=== PATIENT | male | born 1945 | race Hispanic/Latino ===

== ENCOUNTER 2016-09-05 10:24 | Observation (INO) | payer MEDICARE ==
--- NOTE | 2016-09-05 10:45 | ED PDOC ---
Arrival/HPI - General Chief Complaint: Dizziness/Lightheaded Time Seen by Provider: 09/05/16 10:30 Historian: Patient - History of Present Illness Narrative History of Present Illness (Text): 09/05/16 10:42 70 year old male with a past medical history that includes atrial fibrillation, on Warfarin, sent to the emergency department by Dr. Arteaga after complaining of dizziness while getting routine blood work done. Patient's blood pressure was 90 systolic in the office. Patient reports he felt chills last night while watching television. Denies fever, chest pain, shortness of breath, headache, cough, urinary symptoms or stool changes. Time/Duration: 24 hours Symptom Onset: Gradual Symptom Course: Unchanged Modifying Factors (Text): None Associated Symptoms (Text): None Past Medical History - Provider Review Nursing Documentation Reviewed: Yes - Infectious Disease Hx of Infectious Diseases: None - Cardiac Hx Hypertension: Yes Hx Internal Defibrillator: Yes - Musculoskeletal/Rheumatological Hx Falls: No - Psychiatric Hx Substance Use: No - Past Surgical History Past Surgical History: No Previous - Surgical History Hx Inguinal Hernia Repair: Yes - Anesthesia Hx Anesthesia: No Hx Anesthesia Reactions: No Hx Malignant Hyperthermia: No - Suicidal Assessment Feels Threatened In Home Enviroment: No Family/Social History - Physician Review Nursing Documentation Reviewed: Yes Family/Social History: Unknown Family HX Smoking Status: Never Smoked Hx Alcohol Use: No Hx Substance Use: No Hx Substance Use Treatment: No Allergies/Home Meds Allergies/Adverse Reactions: Allergies No Known Allergies Allergy (Verified 09/05/16 10:36) Home Medications: Home Meds Medication Instructions Recorded Confirmed Warfarin [Coumadin] 5 mg PO DAILY 07/07/14 09/05/16 Losartan [Cozaar] 50 mg PO DAILY 07/08/14 09/05/16 Methimazole 10 mg PO DAILY 09/05/16 09/05/16 Metoprolol Tartrate [Lopressor] 25 mg PO BID 09/05/16 09/05/16 Review of Systems - Physician Review All systems were reviewed & negative as marked: Yes - Review of Systems Constitutional: Other (Chills). absent: Fevers Respiratory: absent: SOB, Cough Cardiovascular: absent: Chest Pain Gastrointestinal: absent: Stool Changes Genitourinary Male: absent: Dysuria, Frequency, Hematuria Neurological: Dizziness Physical Exam Vital Signs Reviewed: Yes Vital Signs Temp Pulse Resp BP Pulse Ox 09/05/16 14:17 98.5 F 71 17 112/62 97 09/05/16 10:37 97.6 F 86 18 99/79 L 97 Temperature: Afebrile Blood Pressure: Hypotensive Pulse: Regular Respiratory Rate: Normal Appearance: Positive for: Non-Toxic, Comfortable Pain Distress: None Mental Status: Positive for: Alert and Oriented X 3 Finger Stick Blood Glucose: 147 - Systems Exam Head: Present: Atraumatic, Normocephalic Pupils: Present: PERRL Extroacular Muscles: Present: EOMI Conjunctiva: Present: Normal Mouth: Present: Moist Mucous Membranes Neck: Present: Normal Range of Motion Respiratory/Chest: Present: Clear to Auscultation, Good Air Exchange. No: Respiratory Distress, Accessory Muscle Use Cardiovascular: Present: Regular Rate and Rhythm, Normal S1, S2. No: Murmurs Abdomen: Present: Normal Bowel Sounds. No: Tenderness, Distention, Peritoneal Signs Back: Present: Normal Inspection Upper Extremity: Present: Normal Inspection. No: Cyanosis, Edema Lower Extremity: Present: Normal Inspection. No: Edema Neurological: Present: GCS=15, CN II-XII Intact, Speech Normal Skin: Present: Warm, Dry, Pale. No: Rashes Psychiatric: Present: Alert, Oriented x 3, Normal Insight, Normal Concentration Medical Decision Making ED Course and Treatment: Impression: 70 year old male sent to the emergency department by Dr. Arteaga after complaining of dizziness while getting routine blood work done. Differential Diagnosis include but are not limited to: Plan: -- CT Head, EKG, Chest X-ray -- Labs -- Reassess and disposition Prior Visits: Notes and results from previous visits were reviewed. Patient last seen in ED on 07/08/14 for cough and admitted for pneumonia. Progress Notes: 09/05/16 11:27 EKG shows atrial fibrillation at 63 BPM, interpreted by me. 09/05/16 13:41 Urine was treated. Patient accepted by Dr. Arteaga to observation. - Lab Interpretations Lab Results: 09/05/16 11:20 09/05/16 11:20 Lab Results 09/05/16 13:00: Urine Color Dark yellow, Urine Appearance Cloudy, Urine pH 6.5, Ur Specific Basco 1.025, Urine Protein 30 H, Urine Glucose (UA) Negative, Urine Ketones 15 H, Urine Blood Small H, Urine Nitrate Positive H, Urine Bilirubin Negative, Urine Urobilinogen 1.0 H, Ur Leukocyte Esterase Trace H, Urine RBC 1 - 3, Urine WBC Tntc, Ur Epithelial Cells 0 - 2, Urine Bacteria Many 09/05/16 12:10: Influenza Typ A,B (EIA) Negative for flu a/b 09/05/16 11:20: WBC 16.6 H, RBC 5.14, Hgb 14.4, Hct 42.6, MCV 82.9, MCH 28.0, MCHC 33.8, RDW 13.3, Plt Count 177, MPV 9.0, Gran % 82.2 H, Lymph % (Auto) 9.6 L , [place] % (Auto) 8.0 H, Eos % (Auto) 0.0 L, Baso % (Auto) 0.2, Gran # 13.64 H, Lymph # 1.6, [place] # 1.3 H, Eos # 0.0, Baso # 0.03, PT 29.7 H, INR 2.75 H, APTT 42.1 H, Sodium 135, Potassium 4.8, Chloride 99, Carbon Dioxide 29, Anion Gap 12 , BUN 12, Creatinine 1.0, Est GFR ( Amer) > 60, Est GFR (Non-Af Amer) > 60, Random Glucose 126 H, Calcium 9.3, Magnesium 1.8, Total Bilirubin 1.3, AST 31, ALT 14, Alkaline Phosphatase 64, Lactate Dehydrogenase 385, Total Creatine Kinase 82, Troponin I < 0.01, Total Protein 7.4, Albumin 4.3, Globulin 3.1, Albumin/Globulin Ratio 1.4 - RAD Interpretation Narrative RAD Interpretations (Text): PROCEDURE: CT HEAD WITHOUT CONTRAST [employer] : Cassy Mccord MD HISTORY: Weakness on warfarin COMPARISON: None available. TECHNIQUE: Axial computed tomography images were obtained through the head/brain without intravenous contrast. Radiation dose: Total exam DLP = 79.68 mGy-cm. FINDINGS: HEMORRHAGE: No intracranial hemorrhage. BRAIN: There are mild chronic microangiopathic changes. Allison-white matter differentiation is preserved. There is no mass, mass effect or abnormal extra- axial fluid collection. There is normal density in the larger dural venous sinuses. VENTRICLES: There is mild age-related global parenchymal volume loss and proportionate enlargement of the ventricles and cortical sulci. CALVARIUM: The skull base and calvarium are normal. PARANASAL SINUSES: Predominantly clear. MASTOID AIR CELLS: Predominantly clear. OTHER FINDINGS: None. IMPRESSION: No acute intracranial abnormality. Mild chronic microangiopathic changes and mild age-related global parenchymal volume loss. Radiology Orders: 09/05/16 10:40 CHEST PORTABLE [RAD] Stat 09/05/16 10:41 HEAD W/O CONTRAST [CT] Stat Hand Hide Stretcher: Radiologist - EKG Interpretation Interpreted by ED Physician: Yes Type: 12 lead EKG Comparison: Similar to previous EKG - Medication Orders Current Medication Orders: Discontinued Medications Sodium Chloride (Sodium Chloride 0.9%) 500 mls @ 999 mls/hr IV .Q31M STA Stop: 09/05/16 12:06 Last Admin: 09/05/16 11:46 Dose: 999 MLS/HR eMAR Start Stop Document 09/05/16 11:46 OCS (Rec: 09/05/16 11:46 OCS [id number]) Intravenous Solution Start Date 09/05/16 Start Time 11:46 Ceftriaxone Sodium (Rocephin 1 Gram Ivpb) 100 mls @ 200 mls/hr IVPB STAT STA PRN Reason: Protocol Stop: 09/05/16 14:07 Last Admin: 09/05/16 14:05 Dose: 200 MLS/HR eMAR Start Stop Document 09/05/16 14:05 OCS (Rec: 09/05/16 14:05 OCS [id number]) Intravenous Solution Start Date 09/05/16 Start Time 14:05 - Scribe Statement The provider has reviewed the documentation as recorded by the Aminata Barney Provider Scribe Attestation: All medical record entries made by the Aminata were at my direction and personally dictated by me. I have reviewed the chart and agree that the record accurately reflects my personal performance of the history, physical exam, medical decision making, and the department course for this patient. I have also personally directed, reviewed, and agree with the discharge instructions and disposition. Disposition/Present on Arrival - Present on Arrival Any Indicators Present on Arrival: No History of DVT/PE: No History of Uncontrolled Diabetes: No Urinary Catheter: No History of Decub. Ulcer: No History Surgical Site Infection Following: None - Disposition Have Diagnosis and Disposition been Completed?: Yes Diagnosis: Urinary tract infection, Pre-syncope Disposition: HOSPITALIZED Disposition Time: 15:37 Patient Problems: Current Active Problems Problem Status Diagnosed Atrial fibrillation Acute Pneumonia Acute Condition: FAIR
[2016-09-05 11:29] LABS: ADD MANUAL DIFF? NO
[2016-09-05 11:35] LABS: BASO # 0.03 K/mm3 (0.0-2.0); BASO % 0.2 % (0.0-3.0); GRAN # 13.64 (1.4-6.5); GRAN % 82.2 % (50.0-68.0); HEMATOCRIT 42.6 % (42.0-52.0); LYMPH # 1.6 (1.2-3.4); LYMPH % 9.6 % (22.0-35.0); MEAN CELL VOLUME 82.9 fL (80.0-105.0); MEAN CORPUSCULAR HGB CONC 33.8 g/dl (31.0-37.0); MONO # 1.3 (0.1-0.6); PLATELET COUNT 177 10^3/uL (120.0-450.0); RED CELL DISTRIBUTION WIDTH 13.3 % (11.5-14.5); WHITE BLOOD COUNT 16.6 10^3/ul (4.5-11.0)
[2016-09-05] MEDS ORDERED: Sodium Chloride 0.9% 500 ML IV STA (11:36)
[2016-09-05 11:45] LABS: INR 2.75 (0.93-1.08); PARTIAL THROMBOPLASTIN TIME 42.1 Seconds (23.7-30.8)
[2016-09-05 11:46] LABS: ALB/GLOB RATIO 1.4 (1.1-1.8); ALKALINE PHOSPHATASE 64 U/L (38-133); ALT/SGPT 14 U/L (7-56); AST/SGOT 31 U/L (15-59); BILIRUBIN,TOTAL 1.3 mg/dL (0.2-1.3); BLOOD UREA NITROGEN 12 mg/dL (7-21); CALCIUM 9.3 mg/dL (8.4-10.5); CARBON DIOXIDE 29 mmol/L (21-33); CHLORIDE 99 mmol/L (98-107); GFR AFRICAN-AMERICAN > 60; GLUCOSE,RANDOM 126 mg/dL (70-110); MAGNESIUM 1.8 mg/dL (1.7-2.2); POTASSIUM 4.8 mmol/L (3.6-5.0); SODIUM 135 mmol/L (132-148); TOTAL PROTEIN 7.4 g/dL (5.8-8.3)
[2016-09-05 11:59] LABS: TROPONIN I < 0.01 ng/mL
--- NOTE | 2016-09-05 12:16 | CT ---
PROCEDURE: CT HEAD WITHOUT CONTRAST. HISTORY: Weakness on warfarin COMPARISON: None available. TECHNIQUE: Axial computed tomography images were obtained through the head/brain without intravenous contrast. Radiation dose: Total exam DLP = 79.68 mGy-cm. FINDINGS: HEMORRHAGE: No intracranial hemorrhage. BRAIN: There are mild chronic microangiopathic changes. Allison-white matter differentiation is preserved. There is no mass, mass effect or abnormal extra-axial fluid collection. There is normal density in the larger dural venous sinuses. VENTRICLES: There is mild age-related global parenchymal volume loss and proportionate enlargement of the ventricles and cortical sulci. CALVARIUM: The skull base and calvarium are normal. PARANASAL SINUSES: Predominantly clear. MASTOID AIR CELLS: Predominantly clear. OTHER FINDINGS: None. IMPRESSION: No acute intracranial abnormality. Mild chronic microangiopathic changes and mild age-related global parenchymal volume loss.
--- NOTE | 2016-09-05 12:58 | RAD ---
HISTORY: weakness COMPARISON: 07/10/2014 FINDINGS: LUNGS: The lungs are clear. PLEURA: No significant pleural effusion identified, no pneumothorax apparent. CARDIOVASCULAR: The cardiomediastinal silhouette is stable. OSSEOUS STRUCTURES: No significant abnormalities. VISUALIZED UPPER ABDOMEN: Normal. OTHER FINDINGS: None. IMPRESSION: No active pulmonary disease.
[2016-09-05 13:35] LABS: PH,URINE 6.5 (4.7-8.0); URINE BILIRUBIN NEGATIVE (NEGATIVE); URINE BLOOD SMALL (NEGATIVE); URINE GLUCOSE (UA) NEGATIVE (NEGATIVE); URINE KETONE 15 mg/dL (NEGATIVE); URINE LEUKOCYTE ESTERASE TRACE Leu/uL (NEGATIVE); URINE PROTEIN 30 mg/dL (<30 mg/dL)
[2016-09-05 13:36] LABS: URINE APPEARANCE CLOUDY (CLEAR); URINE COLOR DARK YELLOW (YELLOW)
[2016-09-05] MEDS ORDERED: cefTRIAXone 1 gm 100 ML IVPB STA (13:38)
[2016-09-05 13:42] LABS: URINE BACTERIA MANY (NEG); URINE EPITHELIAL CELLS 0 - 2 /hpf (0-5); URINE WBC TNTC /hpf (0-6)
[2016-09-05 20:38] VITALS: BMI 26.5
[2016-09-05] MEDS ORDERED: Pneumococcal 23-Valent Vaccine IM ONE (20:38)
[2016-09-05] MEDS ORDERED: Influenza Vaccine 45 MCG/0.5 ml IM ONE (20:38)
[2016-09-06 06:25] VITALS: BP 114/55; PULSE 76; RESP 18; TEMP 98.2; O2SAT 98
[2016-09-06] MEDS ORDERED: Barium Sulfate Susp 2.1% w/v, 2.0% w/w 450 mL Bottle PO ONE (07:07)
[2016-09-06 07:17] LABS: HEMATOCRIT 40.3 % (42.0-52.0); MEAN CELL VOLUME 82.6 fL (80.0-105.0); MEAN CORPUSCULAR HEMOGLOBIN 27.9 pg (25.0-35.0); MEAN CORPUSCULAR HGB CONC 33.7 g/dl (31.0-37.0); MEAN PLATELET VOLUME 9.3 fl (7.0-11.0); RED CELL DISTRIBUTION WIDTH 13.3 % (11.5-14.5); WHITE BLOOD COUNT 13.4 10^3/ul (4.5-11.0)
[2016-09-06 07:23] LABS: ALB/GLOB RATIO 1.2 (1.1-1.8); ALKALINE PHOSPHATASE 66 U/L (38-133); ALT/SGPT 16 U/L (7-56); AST/SGOT 27 U/L (15-59); BILIRUBIN,TOTAL 1.2 mg/dL (0.2-1.3); BLOOD UREA NITROGEN 12 mg/dL (7-21); CARBON DIOXIDE 27 mmol/L (21-33); CHLORIDE 103 mmol/L (98-107); GFR AFRICAN-AMERICAN > 60; GLUCOSE,RANDOM 99 mg/dL (70-110); SODIUM 138 mmol/L (132-148); TOTAL PROTEIN 6.7 g/dL (5.8-8.3)
[2016-09-06 07:27] LABS: INR 2.6 (0.93-1.08)
[2016-09-06] MEDS ORDERED: Iohexol 350 MG/100 ML VIAL ONE (08:51)
--- NOTE | 2016-09-06 09:32 | CARD ---
APPROVED REPORT EKG Measurement Heart [id number] <Conclusion> Atrial fibrillation Improved repolarization c/w ECG 07/07/14.
--- NOTE | 2016-09-06 09:58 | CON ---
DATE: 09/06/2016 The patient is seen earlier today in room 261, bed 1. CHIEF COMPLAINT: Urinary symptoms times several days. HISTORY OF PRESENT ILLNESS: This is a 70-year-old male with past medical history of hypertension, ca rdiac arrhythmia, and hyperthyroidism who is admitted through the Emergency Room last night, seen by ____, who states the patient also has atrial fibrillation on Coumadin. The patient had been havi ng dizziness and complaining of urinary symptoms. He had fevers and chills, and he states that he is much improved and wants to be discharged today. He does not want to stay in the hospital. REVIEW OF SYSTEMS: Reveals no abdominal pain, diarrhea, or constipation. No bright red blood per re ctum, no melena, no headaches or blurred vision. No rash or new joint pain. PAST MEDICAL HISTORY: Significant for atrial fibrillation, hypertension, cardiac arrhythmia, hyperth yroidism. PAST SURGICAL HISTORY: Significant for hernia surgery, he states, and a defibrillator. ALLERGIES: The patient has no known allergies. MEDICATIONS AT HOME: Include Coumadin 5 mg daily, losartan, which is Cozaar at 50 mg daily, methimaz ole at 10 mg daily, and metoprolol, which is Lopressor at 25 mg b.i.d. PHYSICAL EXAMINATION: GENERAL: The patient is in bed in no acute distress, nontoxic, insists on being discharged. VITAL SIGNS: Temperature of 98, heart rate of 86, respiratory rate of 18. Blood pressure is 99/79. HEENT: Unremarkable. NECK: Supple. LUNGS: Have decreased breath sounds. HEART: Normal S1, S2. ABDOMEN: Soft, nontender. No rebound, no guarding. LABORATORY DATA: The patient had a chest x-ray, which shows clear lungs. The patient also had a CAT scan of the head, which was no acute findings. White count reveals the patient to have a white count of 16,000, hemoglobin of 14, 82% granulocytosis . Coagulation is noted. Chemistries reveal the patient to have a BUN of 12, creatinine of 0.8, rand om glucose of 126. Urinalysis reveals [id number]-[id number]-count WBCs, many bacteria, leukocyte esterase. Influenza is negative. ASSESSMENT AND PLAN: This is a 70-year-old male with hypertension, atrial fibrillation, hyperthyroid ism, history of hernia, admitted with white count of 16,000, urinary tract symptoms. Urinary tract infection. Must rule out underlying prostate disease, currently on ceftriaxone, and a CAT scan of the abdomen and pelvis has been ordered by Dr. Sinha, and the blood cultures and urine cu ltures are pending. We will order a PSA, and should have a urology evaluation for prostate workup, a lthough the family history is negative for prostate cancer. We will follow with you. Case discussed with Dr. Lee. The patient insists on being discharged today. He insists on [facility]. Clarence Darnell MD cc: [id number] TT: 09/06/2016 09:57:54 Confirmation # [id number] Dictation # [id number]
[2016-09-06] MEDS ORDERED: cefTRIAXone 1 gm 100 ML IVPB SCH (10:00)
--- NOTE | 2016-09-08 23:26 | DS ---
DATE OF EVALUATION: 09/06/2016 DISCHARGE DIAGNOSES: 1. Syncope. 2. Urinary tract infection. 3. Atrial fibrillation. 4. Leukocytosis. 5. On anticoagulation with Coumadin. 6. Fever. HOSPITAL COURSE: The patient was admitted with syncope. He was found to have leukocytosis with elev ated white count of 16,000. UA was positive. Urine culture is pending. He was treated with IV cef triaxone. He was also given IV fluids. He recovered during hospitalization. CT of the head was ne sandieive. ID consultation, Dr. Darnell. PHYSICAL EXAMINATION: GENERAL: On discharge, comfortable, in bed, in no acute distress. VITAL SIGNS: Temperature 98.8, heart rate is 80 per minute, blood pressure 130/60, respiratory rate 16 per minute. HEENT: Normal. NECK: No lymphadenopathy. CARDIOVASCULAR: S1, S2 normal. No murmur, no gallop. ABDOMEN: Soft, nontender, no hepatosplenomegaly. CHEST: Air entry present, equal bilateral. No added sounds. EXTREMITIES: No edema. CENTRAL NERVOUS SYSTEM: Alert, oriented x 3. No sensory motor deficit. SKIN: No petechia, no rash. Labs, on discharge: INR 2.6. White count 13.4, hemoglobin 13.6, hematocrit 40.3, platelet count 177 . Creatinine 0.8. Urine culture pending. MEDICATIONS ON DISCHARGE: Augmentin 500/125 p.o. b.i.d., methimazole 10 mg daily, Lopressor 25 mg p. o. b.i.d., Coumadin 5 mg daily. DISPOSITION: Follow up with Dr. Arteaga. He will need evaluation for prostate. Follow up for leuk ocytosis and urine culture. Discussed with Dr. Arteaga. He will follow up in the office next week. DIET: Regular. ACTIVITIES: As tolerated. DISPOSITION: Home. CONDITION: Stable. MEDICATIONS: All prescriptions given to the patient. Discussed with the patient, discussed with the staff nurse. Discussed with Dr. Arteaga. Time spent on preparing discharge and coordinating care, 65 minutes. Jaelyn Lee MD cc: [id number] TT: 09/08/2016 23:25:56 ln
--- NOTE | 2016-09-08 23:48 | HP ---
HISTORY OF PRESENT ILLNESS: The patient is a 70-year-old male with history of atrial fibrillation on Coumadin, admitted to the hospital when he required routine blood work done. He was found to be hyp otensive. He reports chills in the night. He was watching television, denies any chest pain. No sh ortness of breath. He was found to have leukocytosis on the CBC done with an elevated white count of 16,000. He has atrial fibrillation, heart rate controlled with current medication. He also has hyp erthyroidism on methimazole. PAST MEDICAL HISTORY: Atrial fibrillation, hypertension, has internal defibrillator, hyperthyroidism . PAST SURGICAL HISTORY: Inguinal hernia repair. FAMILY HISTORY: No positive history, mother or father. PERSONAL HISTORY: Never smoked. No history of alcohol abuse. SOCIAL HISTORY: Lives at home with . ALLERGIES: No known drug allergies. HOME MEDICATIONS: Coumadin 5 mg daily, Cozaar 50 mg daily, methimazole 10 mg daily, metoprolol 25 mg p.o. b.i.d. REVIEW OF SYSTEMS: As per HPI. Rest of 12-point review of systems reviewed and negative. PHYSICAL EXAMINATION: GENERAL: Comfortable in bed, in no acute distress. VITAL SIGNS: Temperature 98.5, heart rate 70 per minute, respiratory rate 17 per minute, blood press ure 112/70, pulse ox is 97% on room air. HEENT: Normal. NECK: No lymphadenopathy. CARDIOVASCULAR: S1, S2 normal. No murmur, no gallop. ABDOMEN: Soft, nontender, no hepatosplenomegaly. EXTREMITIES: No edema. CENTRAL NERVOUS SYSTEM: Alert, oriented x 3. No sensory motor deficit. SKIN: No petechia, no rash. LYMPHADENOPATHY: None. SPINE: Nontender. EKG shows atrial fibrillation at 63 beats per minute. LABORATORY DATA: White count 16.6, hemoglobin 14.4, hematocrit 42.6, platelets 177. Sodium 135, pot assium 4.8, glucose 126, UA nitrite positive. Cardiac enzymes normal, bilirubin 1.3. CT head withou t contrast, no hemorrhage. ASSESSMENT: 1. Syncope. 2. Atrial fibrillation. 3. Urinary tract infection. 4. Leukocytosis. 5. On anticoagulation with Coumadin. 6. Hyperthyroidism. PLAN: He will be monitored on telemonitoring. UA positive, will give ceftriaxone 1 gram daily. Uri ne culture to be sent. We will continue methimazole 10 mg daily. We will continue beta sher, met oprolol 25 mg p.o. b.i.d. INR 2.7. We will continue same dose of Coumadin at 5 mg daily. ROSANNE quintana with Dr. Darnell requested. Cardiology consultation with Dr. Bowman. Neuro consultation, Dr. Tan. Discussed with the patient, discussed with the staff. Jaelyn Lee MD cc: [id number] TT: 09/08/2016 23:47:43 mn
== END 2016-09-06 09:28 | disposition home or self-care (01) ==
LOC: ED 10:24 → ERH 13:40 → 2RNO 16:27
PROVIDERS: ADMIT Internal Medicine Nephrology; ATTEND Internal Medicine Nephrology
DX: N39.0 Urinary tract infection, site not specified (principal); J18.9 Pneumonia, unspecified organism; I48.91 Unspecified atrial fibrillation; Z79.01 Long term (current) use of anticoagulants; E05.90 Thyrotoxicosis, unspecified without thyrotoxic crisis or storm; I10 Essential (primary) hypertension; Z79.899 Other long term (current) drug therapy; Z95.810 Presence of automatic (implantable) cardiac defibrillator; B96.20 Unspecified Escherichia coli [E. coli] as the cause of diseases classified elsewhere
CPT/HCPCS: 36415; 70450; 71010; 80053; 81001; 82550; 83615; 83735; 84153; 84484; 85025; 85027; 85610; 85730; 87040; 87086; 87181; 87804; 93005; 99285; G0378; J0696; J7040

== ENCOUNTER 2018-02-08 19:48 | Inpatient (IN) | payer MEDICARE ==
[2018-02-08 21:15] LABS: BASO # 0.03 K/mm3 (0.0-2.0); BASO % 0.4 % (0.0-3.0); EOS % 0.1 % (1.5-5.0); GRAN # 5.65 (1.4-6.5); GRAN % 67.9 % (50.0-68.0); HEMOGLOBIN 15.1 g/dL (14.0-18.0); LYMPH # 1.7 (1.2-3.4); MEAN CELL VOLUME 77.9 fl (80.0-105.0); MEAN CORPUSCULAR HEMOGLOBIN 26.9 pg (25.0-35.0); MEAN CORPUSCULAR HGB CONC 34.5 g/dl (31.0-37.0); MEAN PLATELET VOLUME 8.9 fl (7.0-11.0); MONO % 11.6 % (1.0-6.0); RBC 5.62 10^6/uL (3.5-6.1); RED CELL DISTRIBUTION WIDTH 13.2 % (11.5-14.5); WHITE BLOOD COUNT 8.3 10^3/ul (4.5-11.0)
[2018-02-08 21:25] LABS: ALB/GLOB RATIO 1.3 (1.1-1.8); ALBUMIN 4.2 g/dL (3.0-4.8); ALT/SGPT 22 U/L (7-56); AST/SGOT 38 U/L (17-59); BLOOD UREA NITROGEN 13 mg/dL (7-21); CALCIUM 9.5 mg/dL (8.4-10.5); GFR AFRICAN-AMERICAN > 60; GFR NON-AFRICAN AMERICAN > 60
[2018-02-08 21:31] LABS: URINE BILIRUBIN NEGATIVE (NEGATIVE); URINE BLOOD MODERATE (NEGATIVE); URINE GLUCOSE (UA) 250 mg/dL (NEGATIVE); URINE LEUKOCYTE ESTERASE NEGATIVE Leu/uL (NEGATIVE); URINE PROTEIN TRACE mg/dL (<30 mg/dL)
[2018-02-08 21:33] LABS: URINE APPEARANCE CLEAR (CLEAR); URINE COLOR YELLOW (YELLOW)
[2018-02-08 21:34] LABS: INR 2.66; PARTIAL THROMBOPLASTIN TIME 41.2 Seconds (25.1-36.5); PROTHROMBIN TIME 30.9 SECONDS (9.4-12.5)
--- NOTE | 2018-02-08 21:55 | ED PDOC ---
Arrival/HPI - General Chief Complaint: Fever Time Seen by Provider: 02/08/18 20:02 Historian: Patient - History of Present Illness Narrative History of Present Illness (Text): 02/08/18 20:10 A 72 year old male, whose past medical history includes , presents to the emergency department complaining of fever for the past few days. Patient reports associated chills and foul smelling urine. Patient states he has taken antibiotics prescribed from PMD and 2nd course of antibiotics startes today. Patient sates he was referred to emergency department by PMD. Patient denies any chest pain, shortness of breath, nausea, vomiting, diarrhea, urinary symptoms, back pain, neck pain, headache, dizziness, or any other complaints. Dr. Zhao Time/Duration: Other (a days) Symptom Onset: Gradual Activities at Onset: Light Context: Home Past Medical History - Provider Review Nursing Documentation Reviewed: Yes - Infectious Disease Hx of Infectious Diseases: None - Cardiac Hx Cardiac Disorders: Yes Hx Cardiac Arrhythmia: Yes (AFIB ON COUMADIN) Hx Hypertension: Yes Hx Internal Defibrillator: Yes - Pulmonary Hx Respiratory Disorders: Yes Hx Pneumonia: Yes (2014) - Neurological Hx Neurological Disorder: Yes Hx Dizziness: Yes (NEAR SYNCOPE 09-05-16) - HEENT Hx HEENT Disorder: Yes (TONSILLECTOMY) - Endocrine/Metabolic Hx Endocrine Disorders: No - Hematological/Oncological Hx Blood Disorders: No - Musculoskeletal/Rheumatological Hx Musculoskeletal Disorders: No - Gastrointestinal Hx Gastrointestinal Disorders: Yes (INGUINAL HERNIA REPAIR) - Genitourinary/Gynecological Hx Genitourinary Disorders: Yes Hx Urinary Tract Infection: Yes - Psychiatric Hx Substance Use: No - Past Surgical History Past Surgical History: No Previous - Surgical History Other/Comment: HERNIA REPAIR - Anesthesia Hx Anesthesia: No Hx Anesthesia Reactions: No Hx Malignant Hyperthermia: No - Suicidal Assessment Feels Threatened In Home Enviroment: No Family/Social History - Physician Review Nursing Documentation Reviewed: Yes Family/Social History: Unknown Family HX Smoking Status: Never Smoked Hx Alcohol Use: No Hx Substance Use: No Hx Substance Use Treatment: No Allergies/Home Meds Allergies/Adverse Reactions: Allergies No Known Allergies Allergy (Verified 02/08/18 20:07) Home Medications: Home Meds Medication Instructions Recorded Confirmed Warfarin [Coumadin] 5 mg PO HS 07/07/14 02/08/18 Metoprolol Tartrate [Lopressor] 25 mg PO BID 09/05/16 02/08/18 Review of Systems - Physician Review All systems were reviewed & negative as marked: Yes - Review of Systems Constitutional: Fevers, Night Sweats Respiratory: absent: SOB Cardiovascular: absent: Chest Pain Gastrointestinal: absent: Diarrhea, Nausea, Vomiting Musculoskeletal: absent: Back Pain, Neck Pain Neurological: absent: Headache, Dizziness Physical Exam Vital Signs Reviewed: Yes Vital Signs Temp Pulse Resp BP Pulse Ox 02/08/18 20:08 100.1 F H 102 H 18 117/71 97 Temperature: Febrile Blood Pressure: Normal Pulse: Tachycardic Respiratory Rate: Normal Appearance: Positive for: Well-Appearing, Non-Toxic, Comfortable Pain Distress: None Mental Status: Positive for: Alert and Oriented X 3 - Systems Exam Head: Present: Atraumatic, Normocephalic Pupils: Present: PERRL Extroacular Muscles: Present: EOMI Conjunctiva: Present: Normal Mouth: Present: Moist Mucous Membranes Neck: Present: Normal Range of Motion Respiratory/Chest: Present: Clear to Auscultation, Good Air Exchange. No: Respiratory Distress, Accessory Muscle Use Cardiovascular: Present: Irregular Rhythm (irregular regular rhythm ). No: Regular Rate and Rhythm, Murmurs, Normal S1, S2, Peripheal Pulses Present, Bradycardic, Rub, Gallop, Muffled Abdomen: No: Tenderness, Distention, Peritoneal Signs Back: Present: Normal Inspection Upper Extremity: Present: Normal Inspection. No: Cyanosis, Edema Lower Extremity: Present: Normal Inspection. No: Edema Neurological: Present: GCS=15, CN II-XII Intact, Speech Normal Skin: Present: Warm, Dry, Normal Color. No: Rashes Psychiatric: Present: Alert, Oriented x 3, Normal Insight, Normal Concentration Medical Decision Making ED Course and Treatment: 02/08/18 20:30 Impression: 72 year old male presenting to the Emergency Department with fever. Plan: -- Blood culture -- Urine Culture -- Urinalysis with micro -- Reassess and disposition Prior Visits: Notes and results from previous visits were reviewed. Progress Notes: - Lab Interpretations Lab Results: 02/08/18 20:35 02/08/18 20:35 Lab Results 02/08/18 21:28: Urine Color Yellow, Urine Appearance Clear, Urine pH 6.0, Ur Specific [place] 1.020, Urine Protein Trace H, Urine Glucose (UA) 250 H, Urine Ketones 15 H, Urine Blood Moderate H, Urine Nitrate Negative, Urine Bilirubin Negative, Urine Urobilinogen 1.0 H, Ur Leukocyte Esterase Negative, Urine RBC 5 - 10, Urine WBC 5 - 10, Ur Epithelial Cells 1 - 3, Urine Bacteria Small, Urine Other Mucus 02/08/18 20:35: PT 30.9 H, INR 2.66, APTT 41.2 H 02/08/18 20:35: Sodium 137, Potassium 4.1, Chloride 101, Carbon Dioxide 24, Anion Gap 17, BUN 13, Creatinine 0.9, Est GFR ( Amer) > 60, Est GFR (Non- Af Amer) > 60, Random Glucose 118 H, Calcium 9.5, Total Bilirubin 0.8, AST 38, ALT 22, Alkaline Phosphatase 94, Total Protein 7.3, Albumin 4.2, Globulin 3.2, Albumin/Globulin Ratio 1.3 02/08/18 20:35: WBC 8.3 D, RBC 5.62, Hgb 15.1, Hct 43.8, MCV 77.9 L, MCH 26.9, MCHC 34.5, RDW 13.2, Plt Count 219, MPV 8.9, Gran % 67.9, Lymph % (Auto) 20.0 L , [place] % (Auto) 11.6 H, Eos % (Auto) 0.1 L, Baso % (Auto) 0.4, Gran # 5.65, Lymph # (Auto) 1.7, [place] # (Auto) 1.0 H, Eos # (Auto) 0.0, Baso # (Auto) 0.03 - Medication Orders Current Medication Orders: Ceftriaxone Sodium (Rocephin 1 Gram Ivpb) 1 gm in 100 mls @ 100 mls/hr IVPB STAT STA PRN Reason: Protocol Stop: 02/08/18 23:07 Last Admin: 02/08/18 22:30 Dose: 100 mls/hr eMAR Start Stop Document 02/08/18 22:30 JOL (Rec: 02/08/18 22:31 JOL [id number]) Intravenous Solution Start Date 02/08/18 Start Time 22:31 End Date 02/08/18 End time 23:31 Total Infusion Time 60 Metoprolol Tartrate (Lopressor) 25 mg PO BID [facility] Warfarin Sodium (Coumadin) 5 mg PO HS [facility] PRN Reason: Protocol - Scribe Statement The provider has reviewed the documentation as recorded by the Scribdena Mcelroy All medical record entries made by the Scribe were at my direction and personally dictated by me. I have reviewed the chart and agree that the record accurately reflects my personal performance of the history, physical exam, medical decision making, and the department course for this patient. I have also personally directed, reviewed, and agree with the discharge instructions and disposition. Disposition/Present on Arrival - Present on Arrival Any Indicators Present on Arrival: No History of DVT/PE: No History of Uncontrolled Diabetes: No Urinary Catheter: No History of Decub. Ulcer: No History Surgical Site Infection Following: None - Disposition Have Diagnosis and Disposition been Completed?: Yes Diagnosis: UTI (urinary tract infection) Disposition: HOSPITALIZED Disposition Time: 22:00 Condition: STABLE
[2018-02-08 21:56] LABS: URINE BACTERIA SMALL (NEG)
[2018-02-08] MEDS ORDERED: cefTRIAXone 1 gm 1 GM/100 ML BAG IVPB STA (22:08)
[2018-02-08 23:41] VITALS: BMI 26.9
[2018-02-09] MEDS: cefTRIAXone 1 gm 1 GM/100 ML BAG IV SCH (10:49)
--- NOTE | 2018-02-09 13:39 | CP.PCM.CON ---
<Janneth Whitehead - Last Filed: 02/09/18 14:17> History of Present Illness - History of Present Illness History of Present Illness: PGY-2 Infectious disease conult note for Dr. Sinha's service 72 year old male, whose past medical history includes a. fib, HTN, hyperthyriodism, presents to the emergency department complaining of fever for the past few days. Patient states that he noticed foul smelling urine 1 week ago and was gibe antibiotics from PMD. He states he returned to PMD and 2nd course of antibiotics was started. However he states that when he go home he developed fevers and chills and decided to come to the ED. Patient states that earlier this year he had a UTI and was treated with antibiotics. He denies any dsyuria, increased frequency. He also reports swelling of left testicle that he noticed yesterday. Patient denies any chest pain, shortness of breath, nausea, vomiting, diarrhea, back pain, neck pain, headache, dizziness, or any other complaints. PMH: a. fin, HTN, hyperthyriodism, internal defibrillator PSH: left inguinal hernia repair allergy: NKDA social history: denies smoking, alcohol use, illicit drug use, lives with and is retired Review of Systems - Review of Systems All systems: reviewed and no additional remarkable complaints except Past Patient History - Infectious Disease Hx of Infectious Diseases: None - Past Social History Smoking Status: Former Smoker - CARDIAC Hx Cardiac Disorders: Yes Hx Cardia Arrhythmia: Yes (AFIB ON COUMADIN) Hx Hypertension: Yes - PULMONARY Hx Respiratory Disorders: Yes Hx Pneumonia: Yes (2014) - NEUROLOGICAL Hx Neurological Disorder: Yes Hx Dizziness: Yes (NEAR SYNCOPE 09-05-16) - HEENT Hx HEENT Problems: Yes (TONSILLECTOMY) - ENDOCRINE/METABOLIC Hx Endocrine Disorders: No - HEMATOLOGICAL/ONCOLOGICAL Hx Blood Disorders: No - MUSCULOSKELETAL/RHEUMATOLOGICAL Hx Musculoskeletal Disorders: No Hx Falls: No - GASTROINTESTINAL Hx Gastrointestinal Disorders: Yes (INGUINAL HERNIA REPAIR) - GENITOURINARY/GYNECOLOGICAL Hx Genitourinary Disorders: Yes Hx Urinary Tract Infection: Yes - PSYCHIATRIC Hx Substance Use: No - SURGICAL HISTORY Hx Surgeries: Yes Other/Comment: HERNIA REPAIR - ANESTHESIA Hx Anesthesia: No Hx Anesthesia Reactions: No Hx Malignant Hyperthermia: No Meds Allergies/Adverse Reactions: Allergies Allergy/AdvReac Type Severity Reaction Status Date / Time No Known Allergies Allergy Verified 02/08/18 20:07 - Medications Medications: Current Medications Ceftriaxone Sodium (Rocephin 1 Gram Ivpb) 1 gm in 100 mls @ 200 mls/hr IV DAILY [facility] PRN Reason: Protocol Last Admin: 02/09/18 10:49 Dose: 200 mls/hr Metoprolol Tartrate (Lopressor) 25 mg PO BID [facility] Last Admin: 02/09/18 09:12 Dose: 25 mg Warfarin Sodium (Coumadin) 5 mg PO HS [facility] PRN Reason: Protocol Last Admin: 02/08/18 23:10 Dose: 5 mg Physical Exam - Constitutional Appears: Well, No Acute Distress - Head Exam Head Exam: ATRAUMATIC, NORMOCEPHALIC - Eye Exam Eye Exam: EOMI, Normal appearance - ENT Exam ENT Exam: Mucous Membranes Moist - Respiratory Exam Respiratory Exam: Clear to Auscultation Bilateral, NORMAL BREATHING PATTERN. absent: Decreased Breath Sounds, Rales, Rhonchi, Wheezes, Respiratory Distress - Cardiovascular Exam Cardiovascular Exam: Irregular Rhythm. absent: Bradycardia, Tachycardia, Diastolic murmur, Systolic Murmur - GI/Abdominal Exam GI & Abdominal Exam: Normal Bowel Sounds, Soft. absent: Distended, Firm, Guarding, Tenderness - Exam Exam: Testicular Tenderness (left ) - Extremities Exam Extremities exam: Positive for: normal inspection - Back Exam Back exam: absent: CVA tenderness (L), CVA tenderness (R) - Neurological Exam Neurological exam: Alert, Oriented x3 - Skin Skin Exam: Dry, Intact, Normal Color, Warm Results - Vital Signs Recent Vital Signs: Last Vital Signs Temp 97.7 F 02/09/18 08:04 Pulse 79 02/09/18 08:04 Resp 18 02/09/18 08:04 BP 144/87 02/09/18 08:04 Pulse Ox 96 02/09/18 08:04 - Labs Result Diagrams: 02/08/18 20:35 02/08/18 20:35 Labs: Laboratory Results - last 24 hr 02/09/18 10:30 Prostate Specific Ag 2.5 Assessment & Plan - Assessment and Plan (Free Text) Assessment: 72 year old male, whose past medical history includes a. fib, HTN, hyperthyriodism, presents with fever and chills. UA was negative for nitrates or leukocyte esterase, Will follow up urine cultures. Patient reports testicular tenderness Will follow up testicular US to r/o orchitis. Continue ceftriaxone. Monitor for fevers. case reviewed and discussed with attending <Milad Sinha - Last Filed: 02/09/18 15:39> Meds - Medications Medications: Current Medications Ceftriaxone Sodium (Rocephin 1 Gram Ivpb) 1 gm in 100 mls @ 200 mls/hr IV DAILY [facility] PRN Reason: Protocol Last Admin: 02/09/18 10:49 Dose: 200 mls/hr Metoprolol Tartrate (Lopressor) 25 mg PO BID [facility] Last Admin: 02/09/18 09:12 Dose: 25 mg Warfarin Sodium (Coumadin) 5 mg PO HS [facility] PRN Reason: Protocol Last Admin: 02/08/18 23:10 Dose: 5 mg Results - Vital Signs Recent Vital Signs: Last Vital Signs Temp 97.7 F 02/09/18 08:04 Pulse 79 02/09/18 08:04 Resp 18 02/09/18 08:04 BP 144/87 02/09/18 08:04 Pulse Ox 96 02/09/18 08:04 - Labs Result Diagrams: 02/08/18 20:35 02/08/18 20:35 Labs: Laboratory Results - last 24 hr 02/09/18 10:30 Prostate Specific Ag 2.5 Assessment & Plan - Assessment and Plan (Free Text) Assessment: Infectious Diseases Attending Physician Addendum Patient seen and examined, discussed with medical surgical tech. I have reviewed the pertinent clinical information for the patient, including history of present illness, medical, personal and social histories, lab results and imaging findings. I agree with the above findings, assessment and plan. In addition, we have started the patient on Rocephin for left sided epidydimitis. Follow up blood and urine cx. Follow up ultrasound of the testes.
--- NOTE | 2018-02-09 15:23 | US ---
Date of service: 02/09/2018 HISTORY: Left scrotal pain TECHNIQUE: Realtime sonography through the scrotum with color and doppler flow. COMPARISON: None Available. FINDINGS: RIGHT TESTICLE: Measures 4.9 x 1.6 x 2.3 cm. Normal echotexture and flow. RIGHT EPIDIDYMIS: Epididymal head measures 1.2 x 1.1 x 0.9 cm. Grossly unremarkable appearance with normal flow. The tail of the epididymis is enlarged heterogeneous with increased vascularity. LEFT TESTICLE: Measures 4.3 x 2.3 x 2.4 cm. Normal echotexture and flow. LEFT EPIDIDYMIS: Epididymal head measures 1.8 x 1.1 x 1.0 cm. There are 4 x 3 x 4 mm and 5 x 3 x 4 mm simple cyst in the head of the epididymis. There is a 5 x 2 x 4 mm septated cyst in the tail of the epididymis. The tail of the epididymis is enlarged heterogeneous with increased vascularity. HYDROCELE: Moderate hydroceles. VARICOCELE: None. OTHER FINDINGS: None. IMPRESSION: Findings are most compatible with bilateral focal epididymitis involving the tail, worse on the left. Bilateral hydroceles. No evidence for testicular mass or torsion.
[2018-02-10 07:47] VITALS: BP 130/87; PULSE 82; RESP 18; TEMP 98.1; O2SAT 98
--- NOTE | 2018-02-10 07:59 | HP ---
Copied To: Ever Arteaga MD Attending MD: Ever Arteaga MD CHIEF COMPLAINT AND HISTORY OF PRESENT ILLNESS: This is a 72-year-old male who is coming into the hospital with past medical history of , hypertension, and left inguinal hernia repair in the past. He has complaints of fever, chills. He was being treated with Augmentin for E. Coli that was sensitive. He started having left-sided scrotal pain. He came in to see me in the office yesterday. He had finished about two days of antibiotics. He was switched over to Levaquin as the Augmentin may have been causing side effects. He had taken one dose when at home. Complaining of chills. He was advised to come into the ER for further evaluation. He has no complaints of any fevers or chills. No urinary discharge. No erythema or redness. No abdominal pain, no back pain, no dysuria, no frequency. No weakness in the arms or the legs. REVIEW OF SYMPTOMS: All other review of symptoms are within normal limits except that was mentioned. PAST MEDICAL HISTORY: Atrial fibrillation, hypertension, , on defibrillator. PAST SURGICAL HISTORY: Left inguinal hernia repair. ALLERGIES: NO KNOWN DRUG ALLERGIES. SOCIAL HISTORY: He denies smoking, drinking, or alcohol. He is retired and lives with his . HOME MEDICATIONS: His home medications have been reviewed. PHYSICAL EXAMINATION: VITAL SIGNS: Temperature is 100.1, pulse of 102, blood pressure /71, respirations 18, O2 saturation 97%. GENERAL: The patient lying in bed, uncomfortable, and in no acute distress. HEENT: Atraumatic and normocephalic. Anicteric sclerae. Moist mucosa. [place] conjunctivae. No oral lesions. NECK: No JVD, anterior and posterior adenopathy, thyromegaly, or bruits. CARDIOVASCULAR: S1 and S2 regular. No murmur, rubs, or gallop. LUNGS: Clear to auscultation bilaterally. No wheezes, rales, or rhonchi. ABDOMEN: Bowel sounds are positive. Soft, nontender and nondistended. No hepatosplenomegaly. No rebound and no guarding EXTREMITIES: No cyanosis, clubbing, or edema. NEUROLOGIC: No facial asymmetry. Tongue is midline. No uvula deviation. Power is 5/5 upper extremity and lower extremity. Sensation intact in upper extremity and lower extremity. PSYCHIATRIC: He is awake, alert and oriented x3. No anxiety or depression. He has normal affect. GENITOURINARY: No CVA tenderness. VASCULAR: 2+ pulses in the carotid pulses and pedal pulses. SKIN: No erythema or nodules SPINE: Shows normal curvature. LABORATORY DATA: White count of 8.3, hemoglobin 15.1. Chemistry shows sodium of 137. Creatinine is 0.9. PSA is 2.5. He has blood as moderate, nitrites are negative, bilirubin is negative. INR is 2.6. ASSESSMENT: 1. Urinary tract infection secondary to Escherichia coli. 2. Atrial fibrillation, on anticoagulation. 3. . PLAN: The patient is currently comfortable. He is on IV antibiotics. He has blood cultures and urine cultures have been done. He is on Coumadin, continue at 5 mg. He is on metoprolol. He is going to continue with Rocephin for antibiotics. I will get a testicular ultrasound. He has some point of left-sided scrotal pain. The patient is going to be seen by Infectious Disease. He is going to be on a regular diet. vEer Arteaga MD
[2018-02-10] MEDS: cefTRIAXone 1 gm 1 GM/100 ML BAG IV SCH (09:24)
--- NOTE | 2018-02-10 11:07 | PN ---
Copied To: Jaylan Simmons MD Attending MD: Jaylan Simmons MD DATE: 02/10/2018 SUBJECTIVE: A 72-year-old white male with history of chronic atrial fibrillation, on warfarin and metoprolol. Patient was admitted with swelling of the testicle and elevated fever. He is on Rocephin. The testicle has reduced in size. We are awaiting an ultrasound and cultures. So far, the cultures are negative. Patient will be discharged home today if his cultures are negative and his ultrasound did not show any significant mass, most likely this is epididymitis with infection. Patient will be continued on his Coumadin. PHYSICAL EXAMINATION: CHEST: Clear to auscultation and percussion. HEART: Regular rate with controlled ventricular response. ABDOMEN: Soft. GENITOURINARY: Testicles are without swelling today without tenderness. EXTREMITIES: Without cyanosis, clubbing, or edema. NEUROLOGIC: Grossly intact. PLAN: As above. Possible discharge today on p.o. antibiotics. We will follow up with Dr. Arteaga as an outpatient. Jaylan Simmons MD cc: Ever Arteaga MD
--- NOTE | 2018-02-10 11:14 | CP.PCM.DIS ---
Provider - Provider Date of Admission: 02/09/18 14:45 Attending physician: Ever Arteaga MD Primary care physician: Ever Arteaga MD Time Spent in preparation of Discharge (in minutes): 30 Diagnosis - Discharge Diagnosis (1) Epididymal pain Status: Acute (2) Epididymitis Status: Acute (3) Scrotal edema Status: Acute (4) Atrial fibrillation Status: Acute (5) UTI (urinary tract infection) Status: Acute Hospital Course - Lab Results Lab Results: Most Recent Lab Values WBC 8.3 10^3/ul (4.5-11.0) D 02/08/18 20:35 RBC 5.62 10^6/uL (3.5-6.1) 02/08/18 20:35 Hgb 15.1 g/dL (14.0-18.0) 02/08/18 20:35 Hct 43.8 % (42.0-52.0) 02/08/18 20:35 MCV 77.9 fl (80.0-105.0) L 02/08/18 20:35 MCH 26.9 pg (25.0-35.0) 02/08/18 20:35 MCHC 34.5 g/dl (31.0-37.0) 02/08/18 20:35 RDW 13.2 % (11.5-14.5) 02/08/18 20:35 Plt Count 219 10^3/uL (120.0-450.0) 02/08/18 20:35 MPV 8.9 fl (7.0-11.0) 02/08/18 20:35 Gran % 67.9 % (50.0-68.0) 02/08/18 20:35 Lymph % (Auto) 20.0 % (22.0-35.0) L 02/08/18 20:35 [place] % (Auto) 11.6 % (1.0-6.0) H 02/08/18 20:35 Eos % (Auto) 0.1 % (1.5-5.0) L 02/08/18 20:35 Baso % (Auto) 0.4 % (0.0-3.0) 02/08/18 20:35 Gran # 5.65 (1.4-6.5) 02/08/18 20:35 Lymph # (Auto) 1.7 (1.2-3.4) 02/08/18 20:35 [place] # (Auto) 1.0 (0.1-0.6) H 02/08/18 20:35 Eos # (Auto) 0.0 (0.0-0.7) 02/08/18 20:35 Baso # (Auto) 0.03 K/mm3 (0.0-2.0) 02/08/18 20:35 PT 30.9 SECONDS (9.4-12.5) H 02/08/18 20:35 INR 2.66 02/08/18 20:35 APTT 41.2 Seconds (25.1-36.5) H 02/08/18 20:35 Sodium 137 mmol/L (132-148) 02/08/18 20:35 Potassium 4.1 mmol/L (3.6-5.0) 02/08/18 20:35 Chloride 101 mmol/L (98-107) 02/08/18 20:35 Carbon Dioxide 24 mmol/L (21-33) 02/08/18 20:35 Anion Gap 17 (10-20) 02/08/18 20:35 BUN 13 mg/dL (7-21) 02/08/18 20:35 Creatinine 0.9 mg/dl (0.8-1.5) 02/08/18 20:35 Est GFR ( Amer) > 60 02/08/18 20:35 Est GFR (Non-Af Amer) > 60 02/08/18 20:35 Random Glucose 118 mg/dL (70-110) H 02/08/18 20:35 Calcium 9.5 mg/dL (8.4-10.5) 02/08/18 20:35 Total Bilirubin 0.8 mg/dL (0.2-1.3) 02/08/18 20:35 AST 38 U/L (17-59) 02/08/18 20:35 ALT 22 U/L (7-56) 02/08/18 20:35 Alkaline Phosphatase 94 U/L (38-126) 02/08/18 20:35 Total Protein 7.3 g/dL (5.8-8.3) 02/08/18 20:35 Albumin 4.2 g/dL (3.0-4.8) 02/08/18 20:35 Globulin 3.2 gm/dL 02/08/18 20:35 Albumin/Globulin Ratio 1.3 (1.1-1.8) 02/08/18 20:35 Prostate Specific Ag 2.5 ng/mL (0.00-2.5) 02/09/18 10:30 Urine Color Yellow (YELLOW) 02/08/18 21: Urine Appearance Clear (CLEAR) 02/08/18 21: Urine pH 6.0 (4.7-8.0) 02/08/18 21: Ur Specific [place] 1.020 (1.005-1.035) 02/08/18 21: Urine Protein Trace mg/dL (<30 mg/dL) H 02/08/18 21: Urine Glucose (UA) 250 mg/dL (NEGATIVE) H 02/08/18 21: Urine Ketones 15 mg/dL (NEGATIVE) H 02/08/18 21: Urine Blood Moderate (NEGATIVE) H 02/08/18 21: Urine Nitrate Negative (NEGATIVE) 02/08/18 21: Urine Bilirubin Negative (NEGATIVE) 02/08/18 21: Urine Urobilinogen 1.0 E.U./dL (<1 E.U./dL) H 02/08/18 21:28 Ur Leukocyte Esterase Negative [place]/uL (NEGATIVE) 02/08/18 21:28 Urine RBC 5 - 10 /hpf (0-2) 02/08/18 21:28 Urine WBC 5 - 10 /hpf (0-6) 02/08/18 21:28 Ur Epithelial Cells 1 - 3 /hpf (0-5) 02/08/18 21:28 Urine Bacteria Small (NEG) 02/08/18 21: Urine Other Mucus 02/08/18 21:28 - Hospital Course Hospital Course: PGY-[address] Simmons Mr Wade, 72M, with Hx Afib on metoprolol/Warfarin, HTN, L inguinal repair in the past, c/o fever and chills. Prior to admission, he was treated with augmentin for E coli UTI that was sensitive and switched to levaquin due to possible side effect. However he started to have L scrotal pain with swelling, and he came to the emergency room. Testicular ultrasound showed b/l focal epididymitis (worse on left), bilateral hydrocele, no testicular mass/torsion. He had a mild temp elevation 100.1 on admission. He was treated by IV rocephin. No leukocytosis, remain afebrile, kidney function is normal. Urine culture no growth. Blood culture neg x 1 day. Today, pt clinically has significantly improved. He is stable. Scrotal swelling decreases, he will be discharged home with Vantin x 12 days per ID recommendation. I Told that pt should skip warfarin today. INR 3.17, goal is 2-3. Resume warfarin tomorrow and recheck pt- inr on Thursday. He should follow up with PMD within 1-2 weeks to assess need for urology. Discharge Exam - Head Exam Head Exam: ATRAUMATIC, NORMOCEPHALIC - Eye Exam Eye Exam: EOMI, Normal appearance, PERRL Pupil Exam: NORMAL ACCOMODATION - ENT Exam ENT Exam: Mucous Membranes Moist - Neck Exam Additional comments: supple - Respiratory Exam Respiratory Exam: Clear to PA & Lateral, NORMAL BREATHING PATTERN. absent: Rales, Rhonchi, Wheezes - Cardiovascular Exam Cardiovascular Exam: REGULAR RHYTHM, +S1, +S2. absent: Systolic Murmur - GI/Abdominal Exam GI & Abdominal Exam: Normal Bowel Sounds, Soft. absent: Distended, Guarding, Rigid - Exam Exam: NORMAL INSPECTION, Scrotal Swelling, Testicular Vertical Lie. absent: Testicular Tenderness, Uretheral Discharge, Bladder Distension - Extremities Exam Extremities exam: normal capillary refill, pedal pulses present - Back Exam Back exam: absent: CVA tenderness (L), CVA tenderness (R) - Neurological Exam Neurological exam: Alert, Oriented x3 - Psychiatric Exam Psychiatric exam: Normal Affect, Normal Mood - Skin Skin Exam: Dry, Warm Discharge Plan - Discharge Medications Prescriptions: Cefpodoxime [Vantin] 200 mg PO BID #24 tab - Follow Up Plan Condition: STABLE Disposition: HOME/ ROUTINE Instructions: Urinary Tract Infection, Adult (DC) Additional Instructions: Follow up with Dr Arteaga in 1-2 weeks to evaluate resolution of hydrocele and epididimytis. Talk to primary care doctor and see if you will be benefit from urology evaluation. Finish the whole course of antibiotics Referrals: Ever Arteaga MD [Primary Care Provider] - 2 Week
[2018-02-10 11:32] LABS: HEMOGLOBIN 15.6 g/dL (14.0-18.0); MEAN CELL VOLUME 78.9 fl (80.0-105.0); MEAN CORPUSCULAR HEMOGLOBIN 27.2 pg (25.0-35.0); MEAN CORPUSCULAR HGB CONC 34.5 g/dl (31.0-37.0); MEAN PLATELET VOLUME 8.7 fl (7.0-11.0); RBC 5.73 10^6/uL (3.5-6.1); RED CELL DISTRIBUTION WIDTH 13.2 % (11.5-14.5); WHITE BLOOD COUNT 7.2 10^3/ul (4.5-11.0)
[2018-02-10 11:34] LABS: INR 3.17; PROTHROMBIN TIME 37.3 SECONDS (9.4-12.5)
[2018-02-10 11:37] LABS: ALB/GLOB RATIO 1.3 (1.1-1.8); ALBUMIN 4.2 g/dL (3.0-4.8); ALT/SGPT 24 U/L (7-56); AST/SGOT 45 U/L (17-59); BLOOD UREA NITROGEN 13 mg/dL (7-21); CALCIUM 9.7 mg/dL (8.4-10.5); GFR AFRICAN-AMERICAN > 60; GFR NON-AFRICAN AMERICAN > 60
--- NOTE | 2018-02-10 14:21 | CP.PCM.PN ---
Subjective - Date & Time of Evaluation Date of Evaluation: 02/10/18 Time of Evaluation: 11:35 - Subjective Subjective: Left testicular pain is much improved, no fevers, no dysuria or hematuria, no penile discharge, no nausea or diarrhea. Objective - Vital Signs/Intake and Output Vital Signs (last 24 hours): Temp Pulse Resp BP Pulse Ox 98.1 F 82 18 130/87 98 02/10/18 07:46 02/10/18 09:24 02/10/18 07:46 02/10/18 09:24 02/10/18 07:46 Intake and Output: 02/10/18 02/10/18 06:59 18:59 Intake Total 500 Balance 500 - Labs Labs: 02/10/18 11:20 02/10/18 11:20 PT 37.3 SECONDS (9.4-12.5) H 02/10/18 11:20 INR 3.17 02/10/18 11:20 APTT 41.2 Seconds (25.1-36.5) H 02/08/18 20:35 - Constitutional Appears: Non-toxic, No Acute Distress, Chronically Ill - ENT Exam ENT Exam: Mucous Membranes Moist - Neck Exam Neck Exam: absent: Meningismus - Respiratory Exam Respiratory Exam: absent: Rales, Rhonchi - Cardiovascular Exam Cardiovascular Exam: +S1, +S2 - GI/Abdominal Exam GI & Abdominal Exam: Soft. absent: Tenderness - Exam Exam: Scrotal Swelling (much improved, left epidydimal tenderness also much improved) Assessment and Plan - Assessment and Plan (Free Text) Plan: Assessment Left sided epidydimitis in this elderly male with clinical improvement on Rocephin (monogamous) HTN history of hyperthyroidism atrial fibrillation Plan on Rocephin day 2 with significant clinical improvement - urine cx are negative - can switch to PO Vantin for another 10-14 days with outpatient follow up with PMD - discussed with patient
== END 2018-02-10 13:36 | disposition home or self-care (01) | DRG 728 ==
LOC: ED 19:48 → ERH 22:08 → 3RNO 22:59 → OBSVTOIN 02-09 14:45
PROVIDERS: ADMIT Internal Medicine Nephrology; ATTEND Internal Medicine Nephrology
DX: N45.1 Epididymitis (principal); N39.0 Urinary tract infection, site not specified; N43.3 Hydrocele, unspecified; I48.2 Chronic atrial fibrillation; I10 Essential (primary) hypertension; N50.89 Other specified disorders of the male genital organs; Z87.01 Personal history of pneumonia (recurrent); Z79.01 Long term (current) use of anticoagulants; Z87.891 Personal history of nicotine dependence